=== PATIENT | female | born 1955 | race Caucasian/White ===

== ENCOUNTER → 2019-01-11 | Outpatient (CLI) | payer MEDICARE ==
[~2019-01-11] MED LIST: AMOXICILLI400 MG/5 M PO; DILANTIN100 MG PO; LOSARTAN POTASS50 MG PO; LOSARTAN-HCTZ1 EACH PO
--- NOTE | 2019-01-11 12:12 | Diagnostic Imaging Report ---
MRI SPINE THORACIC WO HISTORY: Bilateral leg pain, mid back pain COMPARISON: Report from CT of the abdomen and pelvis dated 12/30/2013 TECHNIQUE: Sagittal T1, sagittal T2, sagittal STIR, coronal T2, and axial T2 weighted MR images of the thoracic spine were obtained. DISCUSSION: Thoracic kyphosis is preserved. Lumbar levoscoliosis is partially visualized. There is no significant subluxation. No focal or diffuse marrow signal abnormalities are seen. No vertebral compression deformities are seen. The thoracic cord is normal in signal and morphology. The partially visualized upper cauda equina nerve roots may be enlarged. Approximately 2.7 cm T2 hyperintense subcutaneous lesion in the right paramedian back at the T10-T11 level is likely an inclusion cyst. Similar, smaller T2 hyperintense subcutaneous lesion in the left upper back is also likely an inclusion cyst The paravertebral and paraspinal soft tissues are otherwise unremarkable. Mild multilevel disc degeneration is most prominent at C6-C7. Mild canal stenoses from C5-C6 to T1-T2 are due to disc bulges and ligamentum flavum thickening. There is no significant foraminal stenosis. Approximately 2 cm T2 hyperintense lesion in the left kidney is likely a cyst. Bilateral extrarenal pelves are present. Small T2 hyperintense lesion in the right hepatic lobe is also likely a cyst IMPRESSION: 1. Mild multilevel disc degeneration, most prominent at C6-C7. 2. Mild degenerative canal stenoses from C5-C6 to T1-T2. No significant foraminal stenosis. 3. Questionable enlargement of the upper cauda equina nerve roots is partially visualized. Lumbar levoscoliosis is also partially visualized. 4. Approximately 2.7 cm T2 hyperintense subcutaneous lesion in the right paramedian back at the T10-T11 level is likely an inclusion cyst. Further evaluation with MRI of the lumbar spine without and with contrast is recommended. Signed by: Dr. Govind Hubbard M.D. on 01/11/2019 12:09 PM
== END ==
LOC: MRI 09:25
PROVIDERS: ATTEND Psychiatry & Neurology Clinical Neurophysiology
DX: M54.6 Pain in thoracic spine (principal)
CPT/HCPCS: 72146

== ENCOUNTER → 2019-01-30 | Outpatient (CLI) | payer MEDICARE ==
[~2019-01-30] MED LIST changes: +GADOBENATE DIMEGLUMINE 1 ML IV ONE
[2019-01-30 11:16] LABS: BLOOD UREA NITROGEN 18 mg/dL (7-26); BUN/CREATININE RATIO 25 (6-25); CREATININE, SERUM 0.72 mg/dL (0.57-1.11); EST GLOMERULAR FILTRATION RATE > 60 ML/MIN (60-)
--- NOTE | 2019-01-30 13:07 | Diagnostic Imaging Report ---
EXAMINATION: MRI of the lumbar spine without and with contrast . HISTORY: Lower extremity pain and weakness for the last 3 months, evaluate for cauda equina compression. COMPARISON: Thoracic spine MRI 01/11/2019 TECHNIQUE: Sagittal T1, T2, STIR; axial T2 and proton density. Post contrast axial and sagittal T1 fat-sat. Intravenous contrast: 12 mL of MultiHance. FINDINGS: Please note, the patient has transitional vertebral anatomy. Nerve roots as numbered in this report may not correspond to standard dermatomal patterns. For the purposes of the current examination and based on the last rib-bearing vertebra (which is rudimentary), L5 is considered to be sacralized, with rudimentary L5-S1 disc. Curvature/Alignment: -Grade one degenerative anterolisthesis at L2-L3, L3-L4 and L4-L5 mostly related to prominent facet arthrosis. Minimal retrolisthesis at L1-L2. -S-shaped scoliosis with dominant levoscoliosis centered at L3-L4 a right-sided thoracolumbar compensatory curve. Vertebrae: No evidence of recent fracture, infection, or neoplasm. Conus: Normal, terminating at L1 Cauda equina: Narrowing of the thecal sac/cauda equina nerve roots at L2-L3 and L3-L4 due to canal stenosis. No abnormal enhancement. Lower thoracic: Unremarkable. Paraspinal soft tissues: Incidentally noted approximately 3.5 cm benign retention cyst or sebaceous cyst in the subcutaneous soft tissues of the right para median thoracolumbar region. Degenerative changes: Prominent facet arthrosis with mild degenerative facet synovitis mainly of the left side at L2-3, L3-L4 and L4-L5 with minimal facet joint effusion, small posterior synovial cyst and synovial enhancement. L1-L2: Mild symmetric disc bulge and moderate facet arthrosis. Moderate bilateral foraminal stenoses. L2-L3: Symmetric disc bulge, ligamenta flava thickening and facet arthrosis. Severe spinal canal and left foraminal stenosis. Mild right foraminal stenosis. L3-L4: Symmetric disc bulge, ligamenta flava thickening and facet arthrosis. Severe spinal canal and bilateral foraminal stenoses. L4-L5: Minimal symmetric disc bulge, moderate facet arthrosis. No significant canal or foraminal stenoses. L5-S1: Rudimentary disc without canal or foraminal stenosis. Sacroiliac joints: Unremarkable. IMPRESSION: Note is made that there is transitional lumbosacral anatomy as detailed above. 1. Severe degenerative spinal canal stenosis at L2-L3 and L3-L4 with chronic compression of the thecal sac/cauda equina nerve roots. 2. Severe degenerative neural foraminal stenosis on the left at L2-L3 and bilaterally at L3-L4. Moderate bilateral neural foraminal stenoses at L1-L2. 3. Lumbar scoliosis and great 1 degenerative spondylolisthesis at L2-L3, L3-L4 and L4-L5. Signed by: Dr. Radha Flores M.D. on 01/30/2019 1:03 PM
== END ==
LOC: MRI 10:22
PROVIDERS: ATTEND Psychiatry & Neurology Clinical Neurophysiology
DX: G83.4 Cauda equina syndrome (principal)
CPT/HCPCS: 36415; 72158; 82565; 84520

== ENCOUNTER → 2019-02-08 | Outpatient (CLI) | payer MEDICARE ==
[~2019-02-08] MED LIST changes: +DIATRIZOATE MEGL/DIATRIZOA SOD 30 ML BTL PO ONE; -GADOBENATE DIMEGLUMINE 1 ML IV ONE; +IOPAMIDOL 370 MG/ML 200 ML INFUS..BTL INJ ONE; +SODIUM CHLORIDE 0.9% 50ML 50 ML ONE
--- NOTE | 2019-02-08 11:47 | Diagnostic Imaging Report ---
CT of the abdomen and pelvis, with contrast, 02/08/2019. History: Abdominal cyst. Comparison: MRI lumbar spine 01/30/2019. Technique: Multidetector CT scanning of the abdomen and pelvis was performed from the level of the lung bases to the inferior pubic rami after intravenous and oral administration of contrast. Coronal and sagittal multiplanar reformations were obtained. RADIATION DOSE: Total DLP: 206 mGy*cm Dose modulation, iterative reconstruction, and/or weight based adjustment of the mA/kV was utilized to reduce the radiation dose to as low as reasonably achievable. Discussion: LUNG BASES: No visualized abnormalities. ABDOMEN: Cholecystectomy clips are present. A 1.2 cm simple cyst is noted in the posterior aspect of the left kidney. The liver, biliary tree, spleen, pancreas, adrenal glands, and right kidney are are normal. The hepatic vein, portal vein, and splenic vein are patent. The abdominal aorta is within normal limits for size. The stomach, small bowel, and large bowel are unremarkable. The appendix is visualized and is normal. There is no evidence of adenopathy or free fluid. PELVIS: The bladder is unremarkable. The uterus contains 2 cm partially calcified fibroid arising from the uterus but is otherwise unremarkable. The ovaries are not visualized. There is no evidence of free fluid or adenopathy. BONES AND SOFT TISSUES: Advanced degenerative changes are present throughout the lumbar spine without evidence of lytic or sclerotic lesion. Grade 1 spondylolisthesis of L3 on L4 and L4 on L5 are present without evidence of spondylolysis. A 2.4 x 2.1 x 3.7 cm oval circumscribed subcutaneous hypodense lesion is present in the midline of the back posterior to the T11 vertebral body. This corresponds to the MRI finding. IMPRESSION: 1. Small simple left renal cyst. 2. Benign-appearing subcutaneous cystic structure in the back, probable sebaceous versus epidermal inclusion cyst. 3. Leiomyomatous uterus. 4. Status post cholecystectomy. Signed by: Esequiel Junior on 02/08/2019 11:44 AM
== END ==
LOC: CT 09:09
PROVIDERS: ATTEND Psychiatry & Neurology Clinical Neurophysiology
DX: G40.009 Localization-related (focal) (partial) idiopathic epilepsy and epileptic syndromes with seizures of localized onset, not intractable, without status epilepticus (principal); G81.13 Spastic hemiplegia affecting right nondominant side; M54.6 Pain in thoracic spine; K66.8 Other specified disorders of peritoneum
CPT/HCPCS: 74177; Q9967

== ENCOUNTER → 2020-06-28 | Outpatient (CLI) | payer OTHER ==
[~2020-06-28] MED LIST changes: +COVID-19 VACC, MRNA(MODERNA)/PF 100 MCG/0.5 ML VIAL IM ONE; -DIATRIZOATE MEGL/DIATRIZOA SOD 30 ML BTL PO ONE; -IOPAMIDOL 370 MG/ML 200 ML INFUS..BTL INJ ONE; -SODIUM CHLORIDE 0.9% 50ML 50 ML ONE
== END ==
LOC: VACCPMC 18:25
DX: Z23 Encounter for immunization (principal); Z20.822 Contact with and (suspected) exposure to COVID-19

== ENCOUNTER → 2020-07-29 | Outpatient (CLI) | payer OTHER, MEDICARE | END | DRG 951 | LOC: VACCPMC 08:28 | DX: Z23 Encounter for immunization (principal); Z20.822 Contact with and (suspected) exposure to COVID-19 | CPT/HCPCS: 0012A; 91301 ==

== ENCOUNTER 2020-12-26 06:56 | Observation (INO) | payer MEDICARE ==
[2020-12-24 16:05] LABS: BASOPHILS # (AUTO) 0.1 (0.0-0.1); BASOPHILS % 0.4 % (0.0-1.0); EOSINOPHILS # (AUTO) 0.1 (0.0-0.4); EOSINOPHILS % 0.9 % (0.0-6.0); HEMOGLOBIN 13.6 g/dL (12.0-16.0); LYMPHOCYTES # (AUTO) 2.8 (1.0-3.2); LYMPHOCYTES % 21.1 % (18.0-39.1); MEAN CORPUSCULAR HEMOGLOBIN 31.9 pg (28-32); MEAN CORPUSCULAR HGB CONC 32.4 g/dL (31-35); MEAN CORPUSCULAR VOLUME 98.6 fL (81-99); MONOCYTES # (AUTO) 0.6 (0.2-0.8); MONOCYTES % 4.5 % (4.4-11.3); NEUTROPHILS # (AUTO) 9.5 (2.1-6.9); NEUTROPHILS % 72.8 % (38.7-80.0); PLATELET COUNT 248 x10e3/uL (140-360); RED BLOOD COUNT 4.26 x10e6/uL (3.6-5.1); RED CELL DISTRIBUTION WIDTH 12.6 % (11.7-14.4)
[2020-12-24 16:16] LABS: INR 0.98; PROTHROMBIN TIME 13.6 seconds (11.9-14.5)
[2020-12-24 16:17] LABS: PARTIAL THROMBOPLASTIN TIME 26.6 seconds (23.8-35.5)
[2020-12-24 16:21] LABS: ANION GAP 14.6 mmol/L (8-16); CALCIUM 9.3 mg/dL (8.4-10.2); CREATININE, SERUM 0.8 mg/dL (0.57-1.11); POTASSIUM 3.6 mmol/L (3.5-5.1)
[~2020-12-26] VITALS: Ht 149.9 cm; Wt 59.0 kg
[~2020-12-26 06:56] MED LIST changes: +BACLOFEN10 MG PO; +CHOLECALCIFEROL PO; -COVID-19 VACC, MRNA(MODERNA)/PF 100 MCG/0.5 ML VIAL IM ONE; +GABAPENTIN100 MG PO; +LOSARTAN POTAS100 MG PO; +[UNRECOGNIZED DRUG - OTHER] PO
[2020-12-26] MEDS ORDERED: LIDOCAINE 1% W/EPINEPHRINE 20 ML VIAL ONE (07:04)
[2020-12-26] MEDS ORDERED: THROMBIN FOR SOLN 5,000 UNIT VIAL ONE (07:04)
[2020-12-26] MEDS ORDERED: Vancomycin IV 1 GM VIAL ONE (07:04)
[2020-12-26] MEDS ORDERED: LIDOCAINE HCL (LTA) 4 ML SOLN ONE (07:32)
[2020-12-26] MEDS ORDERED: ACETAMINOPHEN 1000 MG/100 ML 100 ML IV ONE (07:32)
[2020-12-26] MEDS ORDERED: IBUPROFEN 800MG/ 200ML 200 ML IV ONE (07:32)
[2020-12-26] MEDS ORDERED: SODIUM CHLORIDE 0.9% 50ML 100 ML ONE (07:56)
[2020-12-26] MEDS ORDERED: HYDROMORPHONE 2MG/ML 2 MG/ML ML IV PRN (10:45)
[2020-12-26] MEDS ORDERED: ACETAMINOPHEN 325 MG TAB PO PRN (10:45)
[2020-12-26] MEDS ORDERED: CARISOPRODOL 350 MG TAB PO PRN (10:45)
[2020-12-26] MEDS ORDERED: CEPACOL SORE THROAT LOZENGES PO PRN (10:45)
[2020-12-26] MEDS ORDERED: MAGNESIUM/ALUMINUM/SIMETHICONE 30 ML UDC PO PRN (10:45)
[2020-12-26] MEDS ORDERED: MORPHINE SULFATE 5 MG/ML VIAL IM PRN (10:45)
[2020-12-26] MEDS ORDERED: PROMETHAZINE HCL (IM) 25 MG/ML VIAL IM PRN (10:45)
[2020-12-26] MEDS ORDERED: OXYCODONE/ACETAMINOPHEN 5-325 1 EACH TABLET PO PRN (10:45)
[2020-12-26] MEDS ORDERED: ONDANSETRON HCL INJ 2MG/ML 2ML 2 MG/ML VIAL IV PRN (10:45)
[2020-12-26] MEDS ORDERED: HYDROCODON-ACE1 EA12 PO (10:46)
[2020-12-26] MEDS ORDERED: SUGAMMADEX SODIUM 200 MG/2 ML VIAL IV ONE (11:10)
[2020-12-26] MEDS ORDERED: ONDANSETRON HCL INJ 2MG/ML 2ML 2 MG/ML VIAL ONE (11:29)
[2020-12-26] MEDS ORDERED: GLYCOPYRROLATE INJ 0.2 MG/ML VIAL ONE (11:29)
[2020-12-26] MEDS ORDERED: POVIDONE IODINE 0.05% 0.05 % ML PO ONE (11:29)
[2020-12-26] MEDS ORDERED: SEVOFLURANE INHAL SOLN 250 ML PEN BTL ONE (11:29)
[2020-12-26] MEDS ORDERED: ROCURONIUM BROMIDE 10 MG/ML 5ML VIAL IV ONE (11:29)
[2020-12-26] MEDS ORDERED: DEXAMETHASONE SOD PHOS INJ 4 MG/ML VIAL ONE (11:29)
[2020-12-26] MEDS ORDERED: LIDOCAINE HCL 2% JELLY 5 ML TUBE ONE (11:29)
[2020-12-26] MEDS ORDERED: LIDOCAINE HCL 2% LOCAL INJ 5 ML SDV VIAL INJ ONE (11:29)
[2020-12-26] MEDS ORDERED: PROPOFOL IV EMULSION 10 MG/ML 20 ML VIAL ONE (11:29)
[2020-12-26] MEDS ORDERED: NEOSTIGMINE 1 MG/ML 10ML VIAL ONE (11:29)
[2020-12-26 11:51] VITALS: BP 173/80
[2020-12-26] MEDS ORDERED: DEXAMETHASONE SOD PHOS INJ 4 MG/ML VIAL IV SCH (12:00)
[2020-12-26 12:10] VITALS: BP 173/80
[2020-12-26] MEDS ORDERED: MIDAZOLAM HCL 2 MG/2 ML VIAL ONE (13:57)
[2020-12-26] MEDS ORDERED: FENTANYL CITRATE/PF 100MCG/2 ML INJ ONE (13:57)
[2020-12-26] MEDS: LACTATED RINGER'S 1,000 ML IV SCH ×2 (14:13→19:05)
[2020-12-26] MEDS: DEXAMETHASONE SOD PHOS INJ 4 MG/ML VIAL IV SCH ×2 (14:13→20:59)
[2020-12-26 17:25] VITALS: BP 148/73
[2020-12-26] MEDS: Cefazolin 1 GM in SODIUM CHLORIDE 0.9% 50ML 50 ML IV SCH (17:45)
[2020-12-26 19:34] VITALS: BP 155/70
[2020-12-26] MEDS ORDERED: PHENYTOIN SODIUM EXT REL 100 MG CAP PO SCH (21:00)
[2020-12-26] MEDS ORDERED: ZOLPIDEM TARTRATE 5 MG TAB PO PRN (21:00)
[2020-12-26 21:29] VITALS: BP 155/70
[2020-12-26 23:25] VITALS: BP 134/63
[2020-12-27] MEDS: DEXAMETHASONE SOD PHOS INJ 4 MG/ML VIAL IV SCH ×2 (01:52→08:56)
[2020-12-27] MEDS: Cefazolin 1 GM in SODIUM CHLORIDE 0.9% 50ML 50 ML IV SCH ×2 (01:52→08:56)
[2020-12-27] MEDS: LACTATED RINGER'S 1,000 ML IV SCH ×2 (02:40→11:45)
[2020-12-27 04:41] VITALS: BP 157/75
[2020-12-27 07:26] VITALS: BP 156/79
[2020-12-27 08:45] VITALS: BP 156/79
[2020-12-27] MEDS ORDERED: BACLOFEN 10 MG TAB PO SCH (09:00)
[2020-12-27] MEDS ORDERED: GABAPENTIN 100 MG CAP PO SCH (09:00)
[2020-12-27] MEDS ORDERED: LOSARTAN POTASSIUM 25 MG TAB PO SCH (09:00)
[2020-12-27 10:58] VITALS: BP 136/74
[2020-12-27] MEDS ORDERED: ONDANSETRON HCL 4 MG ORAL DISINTEGRATING TAB PO PRN (12:30)
[2020-12-27] MEDS ORDERED: PHENYTOIN SODIUM EXT REL 100 MG CAP PO SCH (21:00)
== END 2020-12-27 13:45 | disposition home or self-care (01) ==
LOC: OR 06:56 → PACU V 10:43 → MED/SURG 12:08
PROVIDERS: ADMIT Neurological Surgery; ATTEND Neurological Surgery
DX: M50.01 Cervical disc disorder with myelopathy, high cervical region (principal); Z01.818 Encounter for other preprocedural examination; I69.951 Hemiplegia and hemiparesis following unspecified cerebrovascular disease affecting right dominant side; I10 Essential (primary) hypertension
CPT/HCPCS: 20931; 22551; 22845; 36415; 71046; 72040; 77003; 80048; 85025; 85610; 85730; 86850; 86900; 88304; 93005; 97116 ×2; 97139; 97162; 97530 ×2; C1713 ×5; C1763; G0378 ×2; J0131; J0690 ×2; J1100 ×2; J2001 ×2; J2250; J2405; J2704; J2710; J3010; J3370; J7121

== ENCOUNTER 2021-01-13 10:45 | Outpatient (RCR) | payer MEDICARE ==
[~2021-01-13 10:45] MED LIST changes: +HYDROCODON-ACE1 EA12 PO
== END 2021-01-18 ==
LOC: PT 10:45
PROVIDERS: ATTEND Neurological Surgery
DX: M50.01 Cervical disc disorder with myelopathy, high cervical region (principal)

== ENCOUNTER → 2021-02-18 | Outpatient (RCR) | payer MEDICARE | LOC: PT 01-22 10:39 | PROVIDERS: ATTEND Neurological Surgery | DX: M50.01 Cervical disc disorder with myelopathy, high cervical region (principal); M62.81 Muscle weakness (generalized); R26.81 Unsteadiness on feet; Z91.81 History of falling | CPT/HCPCS: 97139 ==

== ENCOUNTER → 2021-03-20 | Outpatient (RCR) | payer MEDICARE | LOC: PT 02-20 12:56 | PROVIDERS: ATTEND Neurological Surgery | DX: M50.01 Cervical disc disorder with myelopathy, high cervical region (principal); M62.81 Muscle weakness (generalized); R26.2 Difficulty in walking, not elsewhere classified ==

== ENCOUNTER 2021-03-27 12:56 | Outpatient (RCR) | payer MEDICARE | END 2021-04-20 | LOC: PT 12:56 | PROVIDERS: ATTEND Neurological Surgery | DX: M50.01 Cervical disc disorder with myelopathy, high cervical region (principal); M62.81 Muscle weakness (generalized); R26.2 Difficulty in walking, not elsewhere classified ==